=== PATIENT | female | born 1995 | race Caucasian/White ===

== ENCOUNTER 2017-08-04 08:58 | Emergency (ER) | payer OTHER ==
[2017-08-04 11:18] LABS: BASOPHIL % 0.6 % (0-2); PLATELET COUNT 394 x10^3mcL (130-400)
[2017-08-04 11:26] LABS: CALCIUM 9.2 mg/dL (8.5-10.1); CARBON DIOXIDE 27.3 mmol/L (21-32); CHLORIDE SERUM 102 mmol/L (98-107); CREATININE SERUM 0.8 mg/dL (0.6-1.0); GFR1 > 60 mL/min; GLUCOSE SERUM 104 mg/dL (74-106); RED CELL DISTRIBUTION WIDTH 17.1 % (11.5-14.5); SODIUM SERUM 138 mmol/L (136-145)
[2017-08-04 11:30] LABS: ALBUMIN 3.6 g/dL (3.4-5.0); ALKALINE PHOSPHATASE 96 U/L (46-116); ALT/SGPT 18 U/L (14-59); AMYLASE 52 U/L (25-115); AST/SGOT 13 U/L (15-37); BILIRUBIN TOTAL 0.4 mg/dL (0.20-1.00); LIPASE 228 IU/L (73-393)
[2017-08-04 11:40] LABS: TOTAL PROTEIN, SERUM 8.6 g/dL (6.4-8.2)
[2017-08-04 12:16] LABS: AMPHETAMINE QUAL UR NONE DETECTED (NEG <=1000)
[2017-08-04 13:46] VITALS: BP 136/90
== END 2017-08-04 13:46 | disposition home or self-care (01) ==
LOC: ED 08:58
PROVIDERS: Emergency Medicine
DX: R10.13 Epigastric pain (principal); R42 Dizziness and giddiness; R11.10 Vomiting, unspecified
CPT/HCPCS: G0480; J1885; J2405; J3490; J7030

== ENCOUNTER 2017-08-18 08:52 | Emergency (ER) | payer OTHER ==
[~2017-08-18] VITALS: Ht 162.6 cm; Wt 106.1 kg
[2017-08-18 09:31] LABS: microscopic required? NO
[2017-08-18 09:37] LABS: BASOPHIL % 0.5 % (0-2)
[2017-08-18 09:45] LABS: PLATELET COUNT 416 x10^3mcL (130-400); RED CELL DISTRIBUTION WIDTH 16.2 % (11.5-14.5); rbc morphology (normal/abnorm) ABNORMAL (NORMAL)
[2017-08-18 09:50] LABS: CALCIUM 9.6 mg/dL (8.5-10.1); CARBON DIOXIDE 28.4 mmol/L (21-32); CHLORIDE SERUM 102 mmol/L (98-107); CREATININE SERUM 0.9 mg/dL (0.6-1.0); GFR1 > 60 mL/min; GLUCOSE SERUM 102 mg/dL (74-106); POTASSIUM SERUM 4.3 mmol/L (3.5-5.1); SODIUM SERUM 136 mmol/L (136-145)
[2017-08-18 09:51] LABS: AMYLASE 37 U/L (25-115); LIPASE 133 IU/L (73-393)
[2017-08-18 10:01] LABS: UA SPECIFIC GRAVITY >=1.030 (1.005-1.035); urine erythrocyte NEGATIVE (NEGATIVE)
[2017-08-18 11:15] VITALS: BP 134/80
== END 2017-08-18 11:15 | disposition home or self-care (01) ==
LOC: ED 08:52
PROVIDERS: Emergency Medicine
DX: K59.00 Constipation, unspecified (principal); R30.0 Dysuria; E66.01 Morbid (severe) obesity due to excess calories; F17.210 Nicotine dependence, cigarettes, uncomplicated; F12.90 Cannabis use, unspecified, uncomplicated; Z71.6 Tobacco abuse counseling
CPT/HCPCS: 36415; 99406

== ENCOUNTER 2017-12-17 21:04 | Emergency (ER) | payer OTHER ==
[~2017-12-17] VITALS: Ht 162.6 cm; Wt 106.1 kg
[2017-12-17 21:33] VITALS: Ht 162.6 cm; Wt 106.1 kg
[2017-12-18 00:15] VITALS: BP 120/60
== END 2017-12-18 00:15 | disposition home or self-care (01) ==
LOC: ED 21:04
DX: M25.561 Pain in right knee (principal); E66.8 Other obesity; Z68.45 Body mass index [BMI] 70 or greater, adult
CPT/HCPCS: Q0092

== ENCOUNTER 2017-12-26 05:35 | Emergency (ER) | payer OTHER ==
[~2017-12-26] VITALS: Ht 162.6 cm; Wt 105.3 kg
[2017-12-26 05:40] VITALS: Ht 162.6 cm; Wt 105.3 kg
[2017-12-26 06:30] VITALS: BP 172/72
== END 2017-12-26 06:30 | disposition home or self-care (01) ==
LOC: ED 05:35
DX: M76.31 Iliotibial band syndrome, right leg (principal); M25.561 Pain in right knee; F17.210 Nicotine dependence, cigarettes, uncomplicated

== ENCOUNTER 2018-01-02 06:00 | Emergency (ER) | payer OTHER ==
[~2018-01-02] VITALS: Ht 162.6 cm; Wt 104.3 kg
[2018-01-02 06:14] VITALS: Ht 162.6 cm; Wt 104.3 kg
[2018-01-02 08:01] VITALS: BP 137/79
== END 2018-01-02 08:01 | disposition home or self-care (01) ==
LOC: ED 06:00
DX: M54.31 Sciatica, right side (principal)

== ENCOUNTER 2018-01-09 20:02 | Emergency (ER) | payer OTHER ==
[~2018-01-09] VITALS: Ht 162.6 cm; Wt 105.2 kg
[2018-01-09 22:45] LABS: BASOPHIL % 0.1 % (0-2); PLATELET COUNT 380 x10^3mcL (130-400)
[2018-01-09 22:46] LABS: RED CELL DISTRIBUTION WIDTH 16.9 % (11.5-14.5)
[2018-01-09 22:57] LABS: CALCIUM 9.7 mg/dL (8.5-10.1); CARBON DIOXIDE 23.5 mmol/L (21-32); CHLORIDE SERUM 99 mmol/L (98-107); CREATININE SERUM 0.8 mg/dL (0.6-1.0); GFR1 > 60 mL/min; GLUCOSE SERUM 108 mg/dL (74-106); POTASSIUM SERUM 3.9 mmol/L (3.5-5.1); SODIUM SERUM 138 mmol/L (136-145)
[2018-01-09 23:02] LABS: ALKALINE PHOSPHATASE 79 U/L (46-116); ALT/SGPT 23 U/L (14-59); AST/SGOT 13 U/L (15-37); BILIRUBIN TOTAL 0.4 mg/dL (0.20-1.00)
[2018-01-09 23:04] LABS: AMPHETAMINE QUAL UR NONE DETECTED (NEG <=1000)
[2018-01-09 23:04] LABS: TOTAL PROTEIN, SERUM 8.5 g/dL (6.4-8.2)
[2018-01-09 23:47] VITALS: BP 119/73
== END 2018-01-09 23:47 | disposition home or self-care (01) ==
LOC: ED 20:02
PROVIDERS: Emergency Medicine
DX: N39.0 Urinary tract infection, site not specified (principal); M79.1 Myalgia
CPT/HCPCS: J1885; J7030

== ENCOUNTER 2018-05-24 18:59 | Emergency (ER) | payer OTHER ==
[~2018-05-24] VITALS: Ht 162.6 cm; Wt 104.8 kg
[2018-05-24 19:09] VITALS: Ht 162.6 cm; Wt 104.8 kg
[2018-05-24 21:04] VITALS: BP 132/70
== END 2018-05-24 21:04 | disposition home or self-care (01) ==
LOC: ED 18:59
DX: N30.90 Cystitis, unspecified without hematuria (principal); N39.0 Urinary tract infection, site not specified

== ENCOUNTER 2019-06-19 09:40 | Emergency (ER) | payer OTHER ==
[~2019-06-19] VITALS: Ht 162.6 cm; Wt 102.5 kg
[2019-06-19 09:54] VITALS: Ht 162.6 cm; Wt 102.5 kg
[2019-06-19 10:49] LABS: microscopic required? NO
[2019-06-19 11:30] LABS: UA SPECIFIC GRAVITY 1.025 (1.005-1.035); urine erythrocyte NEGATIVE (NEGATIVE)
[2019-06-19 13:27] VITALS: BP 121/80
== END 2019-06-19 13:27 | disposition home or self-care (01) ==
LOC: ED 09:40
PROVIDERS: Emergency Medicine
DX: K59.00 Constipation, unspecified (principal)

== ENCOUNTER 2019-11-29 17:39 | Emergency (ER) | payer OTHER ==
[~2019-11-29] VITALS: Ht 157.5 cm; Wt 103.9 kg
[2019-11-29 17:55] VITALS: Ht 157.5 cm; Wt 103.9 kg
[2019-11-29 22:36] VITALS: BP 138/88
== END 2019-11-29 22:30 | disposition home or self-care (01) ==
LOC: ED 17:39
DX: N39.0 Urinary tract infection, site not specified (principal)
CPT/HCPCS: Q0162